=== PATIENT | male | born 2000 | race Two or more races ===

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

== ENCOUNTER 2021-09-26 07:54 | Inpatient (IN) | payer OTHER ==
[~2021-09-26] VITALS: Ht 167.6 cm; Wt 86.8 kg
[~2021-09-26 07:54] MED LIST changes: +PULMICORT1 MG/2 ML IH; +SINGULAIR 10MG10 MG PO; +ZYNCOF 20-400120 ML PO
[2021-09-28] MEDS ORDERED: PRILOSEC OTC20 MG PO (09:38)
== END 2021-09-28 11:18 | disposition home or self-care (01) | DRG 391 ==
LOC: ER 07:54 → EMR PED 07:57 → ER 07:57 → PED 13:34 → SEC-K 13:34 → PED 16:18
PROVIDERS: ADMIT Pediatrics; ATTEND Pediatrics
DX: K52.89 Other specified noninfective gastroenteritis and colitis (principal); K85.80 Other acute pancreatitis without necrosis or infection

== ENCOUNTER 2021-11-25 09:00 | Outpatient (CLI) | payer OTHER ==
[~2021-11-25 09:00] MED LIST changes: +PRILOSEC OTC20 MG PO
== END 2021-11-25 09:15 | disposition home or self-care (01) ==
LOC: PPH VACUNA 09:00
PROVIDERS: ATTEND Emergency Medicine Pediatric Emergency Medicine
DX: Z23 Encounter for immunization (principal)

== ENCOUNTER 2022-02-14 08:58 | Emergency (ER) | payer OTHER ==
[~2022-02-14] VITALS: Ht 167.6 cm; Wt 88.0 kg
[2022-02-14] MEDS ORDERED: MOMETASONE FURO15 G2 TOP (12:30)
[2022-02-14] MEDS ORDERED: ZITHROMAX500 MG PO (12:30)
== END 2022-02-14 12:54 | disposition home or self-care (01) ==
LOC: EMR PED 08:58 → ER 09:04
DX: R21 Rash and other nonspecific skin eruption (principal); Z88.0 Allergy status to penicillin

== ENCOUNTER 2022-09-24 08:31 | Emergency (ER) | payer OTHER ==
[~2022-09-24] VITALS: Ht 167.6 cm; Wt 89.8 kg
[~2022-09-24 08:31] MED LIST changes: +MOMETASONE FURO15 G2 TOP; +ZITHROMAX500 MG PO
== END 2022-09-24 12:49 ==
LOC: ER 08:31
DX: J10.1 Influenza due to other identified influenza virus with other respiratory manifestations (principal); Z20.822 Contact with and (suspected) exposure to COVID-19; Z88.0 Allergy status to penicillin

== ENCOUNTER 2023-04-25 06:14 | Emergency (ER) | payer OTHER ==
[~2023-04-25] VITALS: Ht 167.6 cm; Wt 86.2 kg
== END 2023-04-25 07:10 | disposition home or self-care (01) ==
LOC: ER 06:14
DX: G24.3 Spasmodic torticollis (principal); Z91.013 Allergy to seafood; Z88.0 Allergy status to penicillin